=== PATIENT | male | born 1995 ===

== ENCOUNTER 2017-01-08 13:25 | Emergency (ER) | payer OTHER ==
[2017-01-08 13:38] VITALS: BMI 22.6
[2017-01-08 13:41] VITALS: BP 127/86; PULSE 70; RESP 16; TEMP 98.2; O2SAT 99
--- NOTE | 2017-01-08 15:08 | ED PDOC ---
Arrival/HPI - General Historian: Patient - History of Present Illness Time/Duration: Prior to Arrival Symptom Onset: Sudden - General Chief Complaint: Abnormal Skin Integrity Time Seen by Provider: 01/08/17 15:04 - History of Present Illness Narrative History of Present Illness (Text): 01/08/17 15:05 21 y/o male with no significant PMH presenting with left thumb laceration. Laceration injury was caused by a knife he was using while at work just prior to arrival. The patient wrapped the thumb with tape and presented here. He denies decreased ROM, numbness or tingling. He denies any other injuries. 01/08/17 15:06 (Simone Cho) Past Medical History - Provider Review Nursing Documentation Reviewed: Yes - Past History Past History: No Previous - Psychiatric Hx Substance Use: No Family/Social History - Physician Review Nursing Documentation Reviewed: Yes Family/Social History: Unknown Family HX Smoking Status: Never Smoked Hx Alcohol Use: No Hx Substance Use: No Allergies/Home Meds Allergies/Adverse Reactions: Allergies No Known Allergies Allergy (Verified 01/08/17 13:38) Home Medications: Home Meds Medication Instructions Recorded Confirmed No Known Home Med 01/08/17 01/08/17 Review of Systems - Physician Review All systems were reviewed & negative as marked: Yes - Review of Systems Constitutional: absent: Fatigue, Fevers Skin: Laceration (left thumb) Physical Exam Vital Signs Reviewed: Yes Temperature: Afebrile Blood Pressure: Normal Pulse: Regular Respiratory Rate: Normal Appearance: Positive for: Well-Appearing Pain Distress: None Mental Status: Positive for: Alert and Oriented X 3 - Systems Exam Head: Present: Atraumatic, Normocephalic Pupils: Present: PERRL Extroacular Muscles: Present: EOMI Mouth: Present: Moist Mucous Membranes Neck: Present: Normal Range of Motion Respiratory/Chest: Present: Clear to Auscultation, Good Air Exchange. No: Respiratory Distress Cardiovascular: Present: Regular Rate and Rhythm, Normal S1, S2 Abdomen: Present: Normal Bowel Sounds. No: Tenderness Upper Extremity: Present: NORMAL PULSES, Tenderness. No: Normal Inspection ( 2cm laceration to left thumb ), Cyanosis Lower Extremity: Present: Normal Inspection, NORMAL PULSES. No: Edema, CALF TENDERNESS Neurological: Present: GCS=15, CN II-XII Intact, Speech Normal Skin: Present: Warm, Dry Psychiatric: Present: Alert, Oriented x 3, Normal Insight, Normal Concentration Vital Signs Temp Pulse Resp BP Pulse Ox 01/08/17 13:40 98.2 F 70 16 127/86 99 Medical Decision Making ED Course and Treatment: 01/08/17 15:12 21 y/o male presenting with left thumb laceration. Laceration is along distal joint line and requires sutures to maintain tissue approximation. The wound was cleaned and prepped. The area was anesthetized with Lidocaine. 4 sutures were placed using 4-0 nylon sutures. The wound was then cleaned and dressed. A splint was applied to maintain immobility. The patient was instructed to return in one week for suture removal. (Simone Cho) Seen and examined with resident. 21 y/o M p/w finger laceration. NV intact. (Simone Vaca) Disposition/Present on Arrival - Present on Arrival Any Indicators Present on Arrival: No History of DVT/PE: No History of Uncontrolled Diabetes: No Urinary Catheter: No History of Decub. Ulcer: No History Surgical Site Infection Following: None - Disposition Have Diagnosis and Disposition been Completed?: Yes Disposition Time: 15:30 Patient Plan: Discharge - Disposition Diagnosis: Laceration Disposition: HOME/ ROUTINE Condition: GOOD Print Language: ANGOLAN Additional Instructions: Please return in 7 days for suture removal. Keep thumb splint in place for 7 days, including nigh time. Return if thumb continues to swell, remain painful or show signs of infection. Referrals: PCP,NO [Primary Care Provider] - Follow up with primary
--- NOTE | 2017-01-08 15:42 | PCM.PROC ---
Procedures Attestation:: I certify that I have explained the specified Operation(s) or Procedure(s), risks, benefits and reasonable alternatives to the Patient and/or other person responsible. The opportunity was given to ask questions and all questions answered - Laceration lidocaine 1% simple, single layer flap deep structures intact left hand 4- 0 other local infiltration simple, interrupted Site: hand Side (if applicable): left Size (cm): 2 Description: flap Depth: simple, single layer Anesthesia used: lidocaine 1% Anesthesia technique: local infiltration Amount (mLs): 5 Pre-repair: wound explored, irrigated extensively, deep structures intact Skin layer closed with: other Size: 4-0 Number of sutures: 4 Technique: simple, interrupted
== END 2017-01-08 15:23 | disposition home or self-care (01) ==
LOC: ED 13:25
DX: S61.012A Laceration without foreign body of left thumb without damage to nail, initial encounter (principal); W26.0XXA Contact with knife, initial encounter; Y93.89 Activity, other specified; Y92.69 Other specified industrial and construction area as the place of occurrence of the external cause; Y99.8 Other external cause status